=== PATIENT | male | born 1965 | race Caucasian/White ===

== ENCOUNTER 2019-02-05 14:34 | Emergency (ER) | payer BC ==
--- NOTE | 2019-02-05 16:10 | ED ---
HPI Chest Pain - HPI Summary HPI Summary: The patient is a 53 y/o M presenting to [facility] with a chief complaint of intermittent episodes of left anterior chest pain initially onset two weeks ago. He reports that he has been experiencing episodes of tightness and pressure in the left chest, and he has also had some nausea and diaphoresis as well. Four days ago, he was seen by his PCP Dr. Patino who did an EKG that was found to be normal. The pain persisted, and he then felt numbness in the left arm last night for 30 minutes. He called his PCP who recommended he come in today. He endorses SOB with exertion, but he denies any fevers, chills, cough, rhinorrhea, sore throat, or edema. He has mild discomfort in the chest now. He notes recent stress at work. Stress test scheduled for 02/08/19. PMHx: Type II DM (diet-controlled), HLD, HTN (no longer medicated), depression. Former smoker , no EtOH, no substance use. Medications reviewed. Allergies noted. - History of Current Complaint Chief Complaint: EDChestPainROMI Time Seen by Provider: 02/05/19 15:48 Hx Obtained From: Patient Onset/Duration: Started Weeks Ago - two, Still Present Timing: Intermittent, Lasting Minutes Initial Severity: Moderate Current Severity: Mild Pain Intensity: 4 Pain Scale Used: 0-10 Numeric Chest Pain Location: Right Anterior Chest Pain Radiates: No - Allergy/Home Medications Allergies/Adverse Reactions: Allergies Allergy/AdvReac Type Severity Reaction Status Date / Time No Known Allergies Allergy Verified 02/05/19 14:41 Home Medications: Home Medications Aspirin EC TAB* [Ecotrin EC Low Dose 81 MG*] 81 mg PO DAILY 02/05/19 [History Confirmed 02/05/19] Escitalopram * [Lexapro *] 20 mg PO DAILY 02/05/19 [History Confirmed 02/05/19] Zolpidem TAB* [Ambien TAB*] 5 - 10 mg PO BEDTIME PRN MDD 10mg 02/05/19 [History Confirmed 02/05/19] clonazePAM TAB(*) [KlonoPIN TAB(*)] 0.5 - 1 mg PO DAILY PRN 02/05/19 [History Confirmed 02/05/19] PMH/Surg Hx/FS Hx/Imm Hx Endocrine/Hematology History: Reports: Hx Diabetes - Type II, no longer medicated Denies: Hx Thyroid Disease Cardiovascular History: Reports: Hx Hypercholesterolemia, Hx Hypertension - no longer medicated Respiratory History: Denies: Hx Asthma, Hx Chronic Obstructive Pulmonary Disease (COPD) GI History: Denies: Hx Ulcer Psychiatric History: Reports: Hx Depression - Surgical History Surgical History: Yes Surgery Procedure, Year, and Place: Hernia repair Infectious Disease History: No Infectious Disease History: Denies: Hx Hepatitis, Hx Human Immunodeficiency Virus (HIV), Traveled Outside the [place] in Last 30 Days - Family History Known Family History: Positive: Hypertension - Social History Alcohol Use: None Hx Substance Use: No Substance Use Type: Reports: None Hx Tobacco Use: Yes Smoking Status (MU): Former Smoker Review of Systems Positive: Skin Diaphoresis. Negative: Fever, Chills Negative: Sore Throat, Nasal Discharge Positive: Chest Pain - left anterior pressure Positive: Shortness Of Breath. Negative: Cough Negative: Edema Positive: Numbness - left arm All Other Systems Reviewed And Are Negative: Yes Physical Exam - Summary Physical Exam Summary: Constitutional: Well-developed, Well-nourished, Alert. (-) Distressed Skin: Warm, Dry HENT: Normocephalic; Atraumatic Eyes: Conjunctiva normal Neck: Musculoskeletal ROM normal neck. (-) JVD, (-) Stridor, (-) Tracheal deviation Cardio: Rhythm regular, rate normal, Heart sounds normal; Intact distal pulses; The pedal pulses are 2+ and symmetric. Radial pulses are 2+ and symmetric. (-) Murmur Pulmonary/Chest wall: Effort normal. (-) Respiratory distress, (-) Wheezes, (-) Rales Abd: Soft, (-) tenderness, (-) Distension, (-) Guarding, (-) Rebound Musculoskeletal: (-) Edema Lymph: (-) Cervical adenopathy Neuro: Alert, Oriented x3 Psych: Mood and affect Normal Triage Information Reviewed: Yes Vital Signs On Initial Exam: Initial Vitals Temp Pulse Resp BP Pulse Ox 98.6 F 75 15 161/76 100 02/05/19 14:40 02/05/19 14:40 02/05/19 14:40 02/05/19 14:40 02/05/19 14:40 Vital Signs Reviewed: Yes Procedures - Sedation Patient Received Moderate/Deep Sedation with Procedure: No Diagnostics - Vital Signs Vital Signs Temp Pulse Resp BP Pulse Ox 02/05/19 14:40 98.6 F 75 15 161/76 100 - Laboratory Result Diagrams: 02/05/19 16:02 02/05/19 16:02 Lab Statement: Any lab studies that have been ordered have been reviewed, and results considered in the medical decision making process. - Radiology CXR Radiology Interpretation Completed By: Radiologist Summary of Radiographic Findings: Impression: No evidence for active cardiopulmonary disease. ED physician has reviewed this report. - EKG 1436 Cardiac Rate: NL - 76 bpm EKG Rhythm: Sinus Rhythm Summary of EKG Findings: Normal sinus rhythm at 76 bpm, normal AL, normal QRS, normal QTc, normal axis, normal ST, T-wave inversions in V1, V2, V3. Overall nonspecific EKG concerning for Wellens syndrome. ED physician has reviewed and interpreted this EKG. Re-Evaluation - Re-Evaluation First Eval Re-Evaluation Time: 18:10 Comment: Patient still experiencing pain, will order NTG Chest Pain Course/Dx - Course Course Of Treatment: Patient is a 53 year-old male presenting with intermittent episodes of left anterior chest pain initially onset two weeks ago with numbness in the left arm last night lasting for 30 minutes, SOB with exertion, diaphoresis, and nausea. History of Type II DM which is now diet controlled, HLD , and HTN without need for medications now. Physical exam reveals no acute abnormalities. Blood work reveals RBCs of 5.94, hemoglobin of 11.5, hematocrit of 35, MCV of 59, MCH of 19, RDW of 16, and glucose of 124. First troponin of 0.00. Second troponin of 0.01. An EKG at 1436 reveals NSR at 76 bpm, overall nonspecific EKG concerning for Wellens syndrome. Chest x-ray is negative. Patient's pain persistent following administration of nitroglycerin. Dr. Bennett from cardiology agrees with admission. Diagnosis of chest pain. Dr. Edward from hospitalist services accepts the patient for admission. After Dr. Edward spoke with the patient, they agree upon discharge. I did not agree to or discuss this plan with the patient. Dr. Edward requested I put in discharge orders in for him due to his lack of ED access. - Diagnoses Provider Diagnoses: Chest pain - Provider Notifications Discussed Care Of Patient With: Fabien F Mauser - cardiology Time Discussed With Above Provider: 19:30 Instructed by Provider To: Other - I discussed the patients case with Dr. Bennett, who recommends admission. Dr. Edward, hospitalist, accepts patient for admission at 1999. Discharge ED - Sign-Out/Discharge Documenting (check all that apply): Patient Departure - Patient will be discharged home, per Dr. Edward's request. - Discharge Plan Condition: Stable Disposition: HOME Patient Education Materials: Chest Pain (ED) Print Language: GREENLANDIC Referrals: Mary Patino MD [Primary Care Provider] - Additional Instructions: follow up with your stress test as scheduled - Billing Disposition and Condition Condition: STABLE Disposition: Home - Attestation Statements Document Initiated by Umairibe: Yes Documenting Scribe: Xin Alfaro Provider For Whom Janay is Documenting (Include Credential): Dr. Mary Salinas MD Scribe Attestation: IXin, scribed for Dr. Mary Salinas MD on 02/05/19 at 2310. Scribe Documentation Reviewed: Yes Provider Attestation: The documentation as recorded by the Xni quijano accurately reflects the service I personally performed and the decisions made by me, Dr. Mary Salinas MD Status of Scribe Document: Viewed
[2019-02-05 16:25] LABS: ABS Basophils 0.1 10^3/ul (0-0.2); ABS Eosinophils 0.2 10^3/ul (0-0.6); ABS Lymphocytes 2.8 10^3/ul (1.0-4.8); ABS Monocytes 0.5 10^3/ul (0-0.8); ABS Neutrophils 5.1 10^3/ul (1.5-7.7); Eosinophil % 2.8 %; Hematocrit 35 % (42-52); Hemoglobin 11.5 g/dL (14.0-18.0); Lymphocyte % 31.7 %; Mean Corpuscular HGB Conc 33 g/dL (31-36); Mean Corpuscular Hemoglobin 19 pg (27-31); Mean Corpuscular Volume 59 fL (80-94); Mean Platelet Volume 8.8 fL (7.4-10.4); Nucleated Red Blood Cells % 0.3; Platelet Count 178 10^3/uL (150-450); Red Blood Count 5.94 10^6 /uL (4.18-5.48); Red Cell Distribution Width 16 % (10-15); White Blood Count 8.8 10^3/uL (3.5-10.8)
[2019-02-05 16:48] LABS: Albumin 4.5 g/dL (3.2-5.2); Albumin/Globulin Ratio 1.8 (1-3); BUN/Creatinine Ratio 14.3 (8-20); Calcium 8.9 mg/dL (8.6-10.3); EGFR African American 105.1 (>60); EGFR Non-African American 86.8 (>60); Globulin 2.5 g/dL (2-4); Total Bilirubin 0.5 mg/dL (0.2-1.0)
[2019-02-05 16:57] LABS: Microcytosis 2+
[2019-02-05 17:20] LABS: Potassium 3.9 mmol/L (3.5-5.0)
[2019-02-05] MEDS ORDERED: Nitroglycerin TAB 0.4 MG* 0.4 MG TAB SL ONE (18:12)
[2019-02-05 22:17] VITALS: BP 142/87
--- NOTE | 2019-02-05 23:17 | CONS ---
CC: Dr. Mary Patino* CONSULTATION REPORT: DATE OF CONSULT: 02/05/19 REFERRING PHYSICIAN: Dr. Mary Salinas. REASON FOR CONSULTATION: Chest pain. HISTORY OF PRESENT ILLNESS: This is a 53-year-old gentleman with past medical history of anxiety disorder; diabetes, has been off medications for 1 to 1-1/2 years; hypertension, has been off medications for over a year after he has had 30- pound weight loss; history of heavy alcohol abuse, has been sober for 5 years; history of dyslipidemia, last LDL was noted to be 49 as of early this year; history of insomnia, on Ambien and started noticing chest pain over the last 2 weeks. The patient's chest pain is substernal, nonradiating and he initially saw Dr. Patino regarding the chest pain, who performed an EKG on this Friday and did not think much of it, but did recommend a stress test to be performed on Friday morning in 3 days from now. However, he had another recurrence of chest pain yesterday for which he took some Klonopin and went to sleep and this morning he also woke up with chest pain and started noticing tingling sensation on the left arm. Chest pain is more of a tightness, which he rates at 4/10 in intensity. He denies any correlation between physical stress versus any food intake or position causing his chest pain to be worsened. He denied any shortness of breath, but he did notice that he has been having some mild shortness of breath with going up the stairs. He also noticed some intermittent palpitations. All of these symptoms have resolved upon arrival to the ER. He did take some nitro, but did not think that it helped him much with respect to the chest pain. PAST MEDICAL HISTORY: As mentioned, anxiety disorder, diabetes and hypertension , but has been off medications for both these; history of heavy alcohol abuse, has been sober for 5 years; history of obesity, lost 30 pounds and has been off medications; history of dyslipidemia, as mentioned last LDL was at goal, on atorvastatin; history of insomnia, on p.r.n. Ambien. He also had a history of iron deficiency anemia, but has not been on his iron supplements for many years. PAST SURGICAL HISTORY: He has had colonic polyp removal and right inguinal hernia repair. HOME MEDICATIONS: The patient is currently on: 1. Ambien 5 to 10 mg p.o. daily as needed. 2. Klonopin 0.5 to 1 mg daily as needed. Usually, he uses this for flights. 3. Lexapro p.o. daily. 4. Lipitor 10 mg oral daily. 5. Aspirin 81 mg oral daily. ALLERGIES: No known drug allergies. SOCIAL HISTORY: He quit smoking in 2003 and used to be a heavy alcohol abuser, but quit alcohol 5 years ago. He has tried multiple drugs, but only in college and he also quit his pot smoking habits along with alcohol 5 years ago. 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 He otherwise lives with his and sons. REVIEW OF SYSTEMS: A 14-point review of systems did not reveal any new information other than what is mentioned in the HPI. PHYSICAL EXAMINATION: Vital Signs: In the ER, BP was noted to be 135/79, heart rate 71, respiration rate 18, saturating 95% on room air, temperature was recorded at 98.6. In general, the patient is awake, alert, and oriented x3, did not appear to be in any acute respiratory distress. Head and Neck Examination: Atraumatic, normocephalic. Bilateral pupils are reactive. Oral mucosa was moist. Neck: Supple. No jugular venous distention. Heart Examination: S1, S2. Regular rate and rhythm. Lungs: Clear to auscultation bilaterally. No wheezing, rhonchi, or rales. Abdomen: Soft, nontender, nondistended. Extremities: No cyanosis, clubbing, or edema. DIAGNOSTIC STUDIES/LAB DATA: CBC was showing some mild anemia with hemoglobin of 11.5 and hematocrit 35, platelet count was noted to be minimally elevated at 16. Coagulation profile shows D-dimer less than 200. Comprehensive metabolic panel was unremarkable with glucose levels minimally elevated at 124, lactic acid 1.2. Two sets of troponins 3 hours apart were noted to be 0 and 0.01. LFTs were within normal limits. EKG, there is no old EKG to compare, but EKG today shows sinus rhythm at 76 beats per minute with some nonspecific T-wave inversions at leads V1 through V3 , no significant ST elevation was noted and no T-wave inversions noted on any of the other leads, although some T-wave flattening was noted in the aVL and aVF. Portable chest x-ray showing normal cardiac silhouette, good costophrenic angles , otherwise unremarkable. Official radiology read also suggested no evidence of active cardiopulmonary disease. IMPRESSION: This is a 53-year-old gentleman with previous history of diabetes and hypertension, has been off medications ever since his weight loss, history of alcohol abuse in the past, who had liver function and has been sober for over 5 years, history of anxiety disorder, dyslipidemia and mild anemia, here due to chest pain which has been resolved for over 3 hours. Two sets of troponins were negative. EKG was nonspecific, but some T-wave inversions noted in the V1 to V3, but no real ST elevation. The patient requested if he could have stress test performed as an outpatient rather than being admitted as he already had a stress test scheduled for Friday. Given that the patient's two troponins were negative, I discussed with the ER physician and I am okay with the patient following up with his outpatient stress test. I also recommended the patient to follow up with his PCP regarding A1c and repeat LDL to risk stratify with respect to any other risk factors for coronary disease and also recommended possible retesting for iron panel given his anemia and the patient has been instructed that he should follow back up in the ER if he really has another episode of chest pain. I have placed the discharge order in and I had requested if ER physician can put in the normal discharge instructions for chest pain. [id number]/CPS #: [id number] MTDD
== END 2019-02-05 22:17 | disposition home or self-care (01) ==
LOC: ED 14:34
DX: R07.9 Chest pain, unspecified (principal); E11.9 Type 2 diabetes mellitus without complications; E78.5 Hyperlipidemia, unspecified; E78.00 Pure hypercholesterolemia, unspecified; I10 Essential (primary) hypertension; F32.9 Major depressive disorder, single episode, unspecified; Z87.891 Personal history of nicotine dependence; Z79.82 Long term (current) use of aspirin; Z79.899 Other long term (current) drug therapy
CPT/HCPCS: 36415; 71045; 80053; 83605; 84484; 85025; 85379; 93005; 99283; A9270-GY